=== PATIENT | male | born 1970 | race Two or more races ===

== ENCOUNTER → 2024-05-09 | Outpatient (CLI) | payer OTHER, SELFPAY ==
--- NOTE | 2024-05-09 | XR_ITS ---
Examination: PA lateral chest 2 views TECHNIQUE: Upright PA lateral chest 2 views Exam date and time: May 09, 2024 1312 hours Comparison September 03, 2023 INDICATIONS: Shortness of breath bronchitis one week FINDINGS: No significant cardiac enlargement No pneumonia or pulmonary edema Intact osseous structures IMPRESSION: No active disease
== END | disposition home or self-care (01) ==
PROVIDERS: PCP Family Medicine; Referring Provider Nurse Practitioner Family; Visit Provider Nurse Practitioner Family
DX: R06.02 Shortness of breath (principal)
CPT/HCPCS: 71046

== ENCOUNTER 2024-09-24 00:19 | Emergency (ER) | payer SELFPAY ==
[2024-09-24 00:21] VITALS: BMI 33.6
--- NOTE | 2024-09-24 00:47 | PC.NURSE ---
PT INFORMED ME THAT HE WILL GO HOME AND CALL AMBULANCE.
== END 2024-09-24 00:47 | disposition left against medical advice (07) ==
PROVIDERS: Emergency Provider Emergency Medicine
DX: Z53.21 Procedure and treatment not carried out due to patient leaving prior to being seen by health care provider (principal)

== ENCOUNTER 2025-01-15 17:11 | Inpatient (IN) | payer BC, SELFPAY ==
[2025-01-15 18:04] VITALS: BP 147/96; PULSE 90; RESP 20; TEMP 36.6; O2SAT 97; BMI 32.6
--- NOTE | 2025-01-15 19:05 | EKG_ITS ---
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
--- NOTE | 2025-01-15 19:08 | XR_ITS ---
EXAMINATION: PA lateral chest 2 views TECHNIQUE: Upright PA lateral chest 2 views Date and time: January 15, 2025, 1920 hours INDICATIONS: Shortness of breath today. FINDINGS: Suspicious for early pneumonia in the right lower lung zone Normal heart size No pulmonary edema The osseous structures are intact IMPRESSION: Suspicious for pneumonia in the right lower lung zone
--- NOTE | 2025-01-15 19:08 | PD.EDRME ---
Rapid Medical Screening Exam E Arrival date/time: 01/15/25 17:11 54-year-old male with a history of alcohol abuse reports with complaints of left upper quadrant abdominal pain and shortness of breath x 2 days Chief Complaint: Shortness of Breath/Dyspnea Time Seen by Provider: 01/15/25 19:01 Vital signs: Vital Signs Temperature 97.8 F 01/15/25 18:04 Pulse Rate 90 01/15/25 18:04 Respiratory Rate 20 01/15/25 18:04 Blood Pressure 147/96 H 01/15/25 18:04 Pulse Oximetry (%) 97 01/15/25 18:04 Oxygen Delivery Method Room Air 01/15/25 18:04
[2025-01-15 19:45] LABS: Basophils # (Auto) 0.0 Thou/mm3 (0.0-0.2); Basophils % (Auto) 0 % (0-2.5); Eosinophils # (Auto) 0.1 Thou/mm3 (0.0-0.5); Eosinophils % (Auto) 1 % (0-10); Hematocrit 48.9 % (41.0-53.0); Hemoglobin 17.3 g/dL (13.5-16.0); Immature Granulocytes Auto 0.12 Thou/mm3 (0.00-0.00); Lymphocytes # (Auto) 1.0 Thou/mm3 (1.0-4.8); Lymphocytes % (Auto) 6 % (10-50); Mean Corpuscular HGB Conc 35.4 g/dl (31.0-37.0); Mean Corpuscular Hemoglobin 33.5 pg (25.0-35.0); Mean Corpuscular Volume 95 fL (80-100); Monocytes # (Auto) 0.7 Thou/mm3 (0.0-0.8); Monocytes % (Auto) 4 % (0-12); Neutrophils # (Auto) 15.2 Thou/mm3 (1.8-7.7); Neutrophils % (Auto) 89 % (37-80); Nucleated Red Blood Cell # 0.00 Thou/mm3 (0.00-0.00); Nucleated Red Blood Cell % 0 /100 WBC (0); Platelet Count 231 Thou/mm3 (140-440); RDW Standard Deviation 43.1 fL (35.1-43.9); Red Blood Count 5.17 Miln/mm3 (4.50-5.90); White Blood Count 17.1 Thou/mm3 (3.8-10.6)
[2025-01-15 20:01] LABS: Collection Type, Urine Clean Catch; Squamous Epithelial Cell,Urine 0 /hpf (0-5); WBC,Urine 0 /hpf (0-5)
[2025-01-15 20:02] LABS: Alanine Aminotransferase 159 U/L (10-49); Albumin, Serum 4.2 gm/dL (3.5-5.0); Albumin/Globulin Ratio 1.2 (1.2-2.2); Alcohol, Blood Medical 74.6 mg/dL (0-10.0); Alkaline Phosphatase 151 U/L (46-116); Anion Gap 26 (7-16); Aspartate Amino Transferase 431 U/L (0-34); BUN/Creatinine Ratio 8 Ratio (12-20); Bilirubin,Total 1.0 mg/dL (0.3-1.2); Blood Urea Nitrogen 9 mg/dL (9-23); Calcium 8.9 mg/dL (8.3-10.6); Calcium (Corrected) 8.9 mg/dL (8.5-10.1); Chloride 101 mMol/L (98-107); Creatinine (Component) 1.2 mg/dL (0.6-1.3); Estimated Creatinine Clearance 81.5 mL/min (>60); Globulin 3.4 gm/dL (2.3-3.5); Glucose 106 mg/dL (74-106); Lipase 117 U/L (12-53); Magnesium 1.4 mg/dL (1.6-2.6); Osmolality,Calculated 276 (275-295); Potassium 3.7 mMol/L (3.4-5.1); Sodium 139 mMol/L (136-145); Total Protein 7.6 gm/dL (5.7-8.2); Troponin I < 0.020 ng/mL (0.0-0.045); eGFR > 60 See Note
[2025-01-15 20:04] LABS: Carbon Dioxide 11.8 mMol/L (20.0-31.0)
--- NOTE | 2025-01-15 20:22 | XR_ITS ---
Examination: Abdomen sonogram, Limited Date and time of exam: January 15, 2025, 2042 hours INDICATIONS: Epigastric pain nausea vomiting beginning today Technique: Real-time sheldon scale transabdominal sonographic images of the upper abdomen obtained. Findings: Normal gallbladder Normal common bile duct 0.3 cm Pancreatic head 3.1 cm Liver 18.7 cm fatty infiltration no focal liver lesions Normal hepatopetal portal. Patent IVC IMPRESSION: Normal gallbladder Normal common bile duct Moderate hepatomegaly fatty infiltration
--- NOTE | 2025-01-15 20:22 | XR_ITS ---
Examination: CT abdomen and pelvis without contrast. Coronal 3-D reconstructions. Sagittal 2-D reconstructions. Date and time of exam: January 15, 2025, 2037 hours INDICATIONS: Nausea generalized abdominal pain today CTDI: vol (mGy): 10.6 DLP: (mGycm): 656 Technique: Axial images of the abdomen have been obtained, 3 mm slice thickness Intravenous contrast material has not been administered. Low dose protocols were performed. One or more of the following dose reduction techniques were used; automated exposure control, adjustment of the mA and/or KV according to patient size, use of iterative reconstruction technique. Findings: Hepatomegaly, 20 cm with severe diffuse fatty infiltration throughout the liver No definite gallstones Edema around the head of the pancreas and body and tail of the pancreas Spleen is not enlarged No adrenal mass No renal or ureteral calculi, no hydronephrosis Aorta normal size No pericecal inflammatory change No bowel obstruction Colonic diverticulosis, no diverticulitis 19 mm fat-containing medical hernia Colonic diverticulosis Urinary bladder intact IMPRESSION: Significant hepatomegaly with severe diffuse fatty infiltration throughout the liver Acute pancreatitis, no pseudocyst
--- NOTE | 2025-01-15 20:24 | PD.EDABDPN ---
ED Abdominal Pain RME/HPI General Chief Complaint: Abdominal Pain Stated complaint: SOB, PAIN W/BREATHING Time seen by provider: 01/15/25 19:01 Arrival date/time: 01/15/25 17:11 RME / HPI RME / HPI narrative: 01/15/25 17:11 54-year-old male with a history of alcohol abuse reports with complaints of left upper quadrant abdominal pain and shortness of breath x 2 days See [facility] for Dr. Carrington's HPI Documentation. Related Data Home Medications ?Medication ?Instructions ?Recorded ?Confirmed No Known Home Medications 07/07/20 07/07/20 Allergies Allergy/AdvReac Type Severity Reaction Status Date / Time morphine Allergy rash Verified 01/15/25 17:14 Review of Systems Review of Systems Systems Reviewed: All systems reviewed, normal except as documented Past Medical History Past Medical History MUSCULOSKELETAL: Positive Musculoskeletal Disorders (trigger finger left thumb), Degenerative Disk Disease and Carpal Tunnel Syndrome (right) Surgical History SURGICAL: Positive Abdominal Surgery (umbilical hernia repair) ED Exam Narrative Physical exam: See [facility] for Dr. Carrington's Physical Exam Documentation. Course Quality Measures none Orders Category Date Time Status COVID-19 Screening Questionnaire NOW Care 01/15/25 23:18 Completed Decision to Admit X1 Care 01/15/25 23:18 Completed EKG (ED ONLY) *Do not use* NOW Care 01/15/25 19:07 Completed NPO NOW Care 01/15/25 22:10 Active Saline [Insert IV] NOW Care 01/15/25 22:12 Active Diet NPO (NOW) Diet 01/15/25 22:[address] abdomen pelvis wo con Stat Exams 01/15/25 20:22 Completed CXR2 [XR chest 2V] Stat Exams 01/15/25 19:08 Completed EKG (ED Only) Stat Exams 01/15/25 19:05 Draft US abdomen limited Stat Exams 01/15/25 20:22 Completed ABG [Arterial Blood Gas] Stat Lab 01/16/25 01:48 Completed Alcohol, Blood Medical Stat Lab 01/15/25 19:36 Completed Amylase Stat Lab 01/15/25 19:36 Completed BNP [B-Type Natriuretic Peptide] Stat Lab 01/15/25 19:36 Completed Beta Hydroxybutyrate Stat Lab 01/15/25 21:23 Completed Bilirubin,Direct Stat Lab 01/15/25 19:36 Completed CBC Stat Lab 01/15/25 19:36 Completed CMP [Comprehensive Metabolic Panel] Stat Lab 01/15/25 19:36 Completed Drug Screen,Urine Stat Lab 01/15/25 19:46 Completed Lactic Acid [Lactate (Lactic Acid)] Stat Lab 01/15/25 23:13 Results Lipase Stat Lab 01/15/25 19:36 Completed Mag [Magnesium] Stat Lab 01/15/25 19:36 Completed PT [Prothrombin Time with INR] Stat Lab 01/15/25 19:36 Completed PTT [Partial Thromboplastin Time] Stat Lab 01/15/25 19:36 Completed Thyroid Stimulating Hormone Stat Lab 01/15/25 19:36 Completed Triglycerides Stat Lab 01/15/25 23:13 Completed Troponin I Stat Lab 01/15/25 19:36 Completed UA [Urinalysis] Stat Lab 01/15/25 19:46 Completed ACETAMINOPHEN w/COD 300-30 [Tylenol w/Cod #3] Med 01/15/25 20:21 Discontinued 2 tab PO X1 ONE Famotidine [Pepcid] Med 01/15/25 20:21 Discontinued 40 mg PO X1 ONE HYDROmorphone INJ [Dilaudid Inj] Med 01/15/25 22:13 Discontinued 1 mg IVP X1 ONE Ketorolac Inj [Toradol Inj] Med 01/15/25 22:12 Discontinued 30 mg IVP X1 ONE LORazepam [Ativan Inj] Med 01/16/25 00:02 Discontinued 2 mg IVP X1 ONE Labetalol IV [Trandate IV] Med 01/16/25 00:12 Discontinued 20 mg IVP X1 ONE Magnesium Oxide [Mag-Ox 400] Med 01/15/25 20:21 Discontinued 800 mg PO X1 ONE Magnesium Sulfate 2 GM Ivpb [Magnesium Sulfate Ivpb] Med 01/15/25 22:24 Discontinued 2 gm in 50 ml IV X1 Metoprolol Tartrate Inj [Lopressor Inj] Med 01/16/25 00:02 Discontinued 5 mg IVP X1 ONE Ondansetron Inj [Zofran Inj] Med 01/15/25 22:12 Discontinued 4 mg IVP X1 ONE Ondansetron Odt [Zofran Odt] Med 01/15/25 20:21 Discontinued 4 mg PO X1 ONE Pantoprazole Inj [Protonix Inj] Med 01/15/25 20:21 Discontinued 40 mg IVP X1 ONE Ringers Lactated 1000 ml [Lactated Ringers] 1,000 ml Med 01/15/25 22:12 Discontinued IV 1,000 mls/hr Vital Signs Vital signs: Vital Signs Temperature 97.8 F 01/15/25 18:04 Pulse Rate 90 01/15/25 18:04 Respiratory Rate 20 01/15/25 18:04 Blood Pressure 147/96 H 01/15/25 18:04 Pulse Oximetry (%) 97 01/15/25 18:04 Oxygen Delivery Method Room Air 01/15/25 18:04 Abdominal Pain MDM MDM Narrative MDM Narrative:: This section includes all my notes and documentations, including HPI, PE, and ED course. Alejandro Carrington MD HPI: 54-year-old male here with several days of abdominal pain and vomiting. Consumes alcohol heavily regularly. No hematemesis or coffee-ground emesis. No rectal bleeding or tarry stools. No other complaints. ROS: All negative except as documented in HPI. Physical Exam: General: Alert and oriented. In severe pain. Eyes: Conjunctivae and lids clear. ENT: No nasal congestion. Neck: Supple. Heart: RRR. Lungs: No respiratory distress. Good air movement. No rhonchi, wheezing, rales. Abdomen: Soft with severe pain, difficult to localize. Normal bowel sounds. No distension. No rebound or guarding. Back: No CVA tenderness. Skin: Warm and dry. Neuro: Alert and oriented X 3. I reviewed all diagnostic test results. My interpretation of the EKG is sinus rhythm with no acute ST?T changes. My interpretation of the chest x-ray is equivocal infiltrates. My review of the Abdomen/Pelvis CT report is pancreatitis. My review of the Abdomen US report is no acute findings. Blood tests and urine tests remarkable for WBC 17.1, lactic acid 5.1, Mg 1.4, LFT elevation, serum alcohol 74.6. At this point, diagnoses include Hypomagnesemia Pancreatitis Treatment here included: Zofran ODT 4 mg, oral famotidine 20 mg, and two Tylenol #3 prior to diagnostic tests. IVF, Zofran 4 mg IV, Dilaudid 1 mg IV, Toradol 30 mg IV, and MgSO4 2 gram IV after diagnostic tests. Some improvement noted. 22:16 - I discussed the case with our hospitalist. About the presentation and exam and diagnostics and treatments here. And need of further care in the hospital. Will accept the patient. Alejandro Carrington MD Patient data External records reviewed:: [facility] previous records (Reviewed prior ED records from 09/03/23. Patient was seen for Acute shoulder pain.) Clinical information provided by:: patient Social determinants that could affect healthcare access:: alcohol use Patient has the following chronic illnesses:: Degenerative Disk Disease, Carpal Tunnel Syndrome How is presenting disease/condition affected by chronic disease/condition?: uneffected by Evaluation data The following diagnostics were reviewed and interpreted by me:: lab results, radiology exam(s) and EKG tracing(s) Lab and/or radiology exams considered but not ordered:: None Interpretation Summary: I reviewed all diagnostic test results. My interpretation of the EKG is sinus rhythm with no acute ST?T changes. My interpretation of the chest x-ray is equivocal infiltrates. My review of the Abdomen/Pelvis CT report is pancreatitis. My review of the Abdomen US report is no acute findings. Blood tests and urine tests remarkable for WBC 17.1, lactic acid 5.1, Mg 1.4, LFT elevation, serum alcohol 74.6. Medications / Prescriptions Medications or Prescriptions considered but not ordered:: None Medication administrations:: Medication Administration History Acetaminophen (Acetaminophen 325 Mg Tablet) 650 mg PO Q6H PRN PRN Reason: Fever >100.4 Stop: 02/15/25 00:15 Acetaminophen (Acetaminophen 325 Mg Tablet) 650 mg PO Q6H PRN PRN Reason: PAIN SCALE 1-3 (mild Stop: 02/15/25 00:15 Folic Acid (Folic Acid 1 Mg Tablet) 1 mg PO QDAY DARYL Stop: 02/15/25 08:59 Heparin Sodium (Porcine) (Heparin Sod Inj 5000 Unit/Ml Vial) 5,000 unit SC BID DARYL Stop: 01/30/25 08:59 Hydromorphone HCl (Hydromorphone Inj 2 Mg/Ml Vial) 1 mg IVP Q4H PRN PRN Reason: PAIN SCALE 4-10(Mod-Sev Stop: 01/21/25 00:20 Lactated Ringer's (Lactated Ringers) 1,000 mls @ 200 mls/hr IV .Q5H DARYL Stop: 02/15/25 01:05 Labetalol HCl (Labetalol Inj 5 Mg/Ml Vial 20 Ml) 10 mg IVP Q4HR PRN PRN Reason: SBP>180 Stop: 02/15/25 02:13 Lorazepam (Lorazepam 0.5 Mg Tablet) 0.5 mg PO Q4HR PRN PRN Reason: [facility] 2-6 Stop: 01/21/25 01:55 Lorazepam (Lorazepam 0.5 Mg Tablet) 1 mg PO Q4HR PRN PRN Reason: [facility] 7-11 Stop: 01/21/25 01:55 Lorazepam (Lorazepam 0.5 Mg Tablet) 2 mg PO Q4HR PRN PRN Reason: [facility] 12-16 Stop: 01/21/25 01:55 Ondansetron HCl (Ondansetron Inj 2 Mg/Ml Inj 2 Ml) 4 mg IVP Q6H PRN; Protocol PRN Reason: NAUSEA OR VOMITING Stop: 02/15/25 00:15 Sennosides (Senna Tablet) 1 tab PO QDAY PRN; Protocol PRN Reason: constipation Stop: 02/15/25 00:15 Thiamine HCl (Thiamine 100 Mg Tablet) 100 mg PO QDAY DARYL Stop: 02/15/25 08:59 Discontinued Medications Acetaminophen/Codeine Phosphate (Acetaminophen W/Cod 300-30 Tablet) 2 tab PO X1 ONE Stop: 01/15/25 20:22 Last Admin: 01/15/25 21:55 Dose: 2 tab Documented By: GB Famotidine (Famotidine 20 Mg Tablet) 40 mg PO X1 ONE Stop: 01/15/25 20:22 Last Admin: 01/15/25 21:53 Dose: 40 mg Documented By: GB Hydromorphone HCl (Hydromorphone Inj 2 Mg/Ml Vial) 1 mg IVP X1 ONE Stop: 01/15/25 22:14 Last Admin: 01/15/25 23:06 Dose: 1 mg Documented By: SF Lactated Ringer's (Lactated Ringers) 1,000 mls @ 1,000 mls/hr IV .Q1H ONE Stop: 01/15/25 23:11 Last Infusion: 01/16/25 00:51 Dose: Infused Documented By: Admin: 01/15/25 23:05 Dose: 1,000 mls/hr Documented By: ETIENNE Magnesium Sulfate (Magnesium Sulfate Ivpb) 2 gm in 50 mls @ 25 mls/hr IV X1 ONE Stop: 01/16/25 00:23 Last Infusion: 01/16/25 01:07 Dose: Infused Documented By: Admin: 01/15/25 23:07 Dose: 25 mls/hr Documented By: ETIENNE Lactated Ringer's (Lactated Ringers) 1,000 mls @ 150 mls/hr IV .Q6H40M DARYL Stop: 02/15/25 00:32 Last Infusion: 01/16/25 01:49 Dose: Infused Documented By: Admin: 01/16/25 00:54 Dose: 150 mls/hr Documented By: ARACELI Ketorolac Tromethamine (Ketorolac Inj 30 Mg/Ml Vial) 30 mg IVP X1 ONE Stop: 01/15/25 22:13 Last Admin: 01/15/25 23:03 Dose: 30 mg Documented By: ETIENNE Labetalol HCl (Labetalol Inj 5 Mg/Ml Vial 20 Ml) 20 mg IVP X1 ONE Stop: 01/16/25 00:13 Last Admin: 01/16/25 00:35 Dose: 20 mg Documented By: ARACELI Labetalol HCl (Labetalol Inj 5 Mg/Ml Vial 20 Ml) 10 mg IVP X1 ONE Stop: 01/16/25 01:57 Last Admin: 01/16/25 02:07 Dose: 10 mg Documented By: ARACELI Lorazepam (Lorazepam 2 Mg/Ml Vial) 2 mg IVP X1 ONE Stop: 01/16/25 00:03 Last Admin: 01/16/25 00:36 Dose: 2 mg Documented By: EE Magnesium Oxide (Magnesium Oxide 400 Mg Tablet) 800 mg PO X1 ONE Stop: 01/15/25 20:22 Last Admin: 01/15/25 21:54 Dose: 800 mg Documented By: ISAIAH Metoprolol Tartrate (Metoprolol Tartrate Inj 1 Mg/Ml Amp 5 Ml) 5 mg IVP X1 ONE Stop: 01/16/25 00:03 Last Admin: 01/16/25 00:36 Dose: Not Given Documented By: ARACELI Non-Admin Reason: Duplicate Medication on eMAR Ondansetron HCl (Ondansetron Odt 4 Mg Tabrap) 4 mg PO X1 ONE; Protocol Stop: 01/15/25 20:22 Last Admin: 01/15/25 21:53 Dose: 4 mg Documented By: ISAIAH Ondansetron HCl (Ondansetron Inj 2 Mg/Ml Inj 2 Ml) 4 mg IVP X1 ONE; Protocol Stop: 01/15/25 22:13 Last Admin: 01/15/25 23:05 Dose: 4 mg Documented By: SF Pantoprazole Sodium (Pantoprazole Inj 40 Mg Vial) 40 mg IVP X1 ONE Stop: 01/15/25 20:22 Last Admin: 01/15/25 23:05 Dose: 40 mg Documented By: ETIENNE Treatment here included: Zofran ODT 4 mg, oral famotidine 20 mg, and two Tylenol #3 prior to diagnostic tests. IVF, Zofran 4 mg IV, Dilaudid 1 mg IV, Toradol 30 mg IV, and MgSO4 2 gram IV after diagnostic tests. Consultations Consultation(s) initiated? (list below): Yes Consultation #1 (Physician, Specialty, Details): I discussed the case with our hospitalist. About the presentation and exam and diagnostics and treatments here. And need of further care in the hospital. Will accept the patient. Time: 22:16 Diagnosis Differential diagnosis abdominal pain: abdominal pain, acute appendicitis, calculus of kidney, constipation, diverticulitis, gastroenteritis, pancreatitis, small bowel obstruction and other (Biliary colic, GERD, PUD, gastritis) Most likely diagnosis given after review of the tests above:: Pancreatitis Hypomagnesemia Admission Indicated Admission indicated?: indicated Explain why admission is indicated or not indicated:: Pancreatitis Hypomagnesemia Admission Request Was there a request for admission?: Yes Admission Attestation Admission request attestation: Discussed case with Hospitalist service regarding admission. Discussed patients ED course, exam findings, labs, and radiology results. Agreed to accept the patient for admission. Disposition Plan Disposition Plan: Admit Discharge Plan Plan Patient Disposition: Admit Acute Care w/in Hospital Problem List Clinical Impression: Pancreatitis, Hypomagnesemia
[2025-01-15 20:34] LABS: Amphetamine/Methamp Scrn,U Negative (Negative); Barbiturate Screen,Urine Negative (Negative); Benzodiazepines Screen,Urine Positive (Negative); Benzoylecgonine Screen, Ur Negative (Negative); Fentanyl Screen,Urine Negative (Negative); Opiate Screen,Urine Negative (Negative); THC Screen,Urine Negative (Negative)
[2025-01-15 20:44] LABS: Bilirubin,Urine Negative (Negative); Blood,Urine Trace (Negative); Clarity,Urine Clear (Clear/Hazy); Color,Urine Yellow (Lt Yel-Yel); Glucose, Urine Negative (Negative); Ketones,Urine 2+ (Negative); Leukocyte Esterase,Urine Negative (Negative); Nitrite,Urine Negative (Negative); PH,Urine 5.5 (5.0-7.0); Protein,Urine 1+ (Neg - Trace); RBC,Urine 2 /hpf (0-3); Specific Gravity,Urine 1.034 (1.001-1.035); Urobilinogen,Urine Negative mg/dL (0.0-1.0)
[2025-01-15 20:51] LABS: INR 1.2 (0.9-1.3); Partial Thromboplastin Time 29.9 Seconds (22.0-36.0); Prothrombin Time 12.3 Seconds (9.0-12.2)
[2025-01-15 20:57] LABS: B-Type Natriuretic Peptide < 20 pg/mL (0-100)
[2025-01-15 21:04] LABS: Amylase 75 U/L (30-118); Bilirubin,Direct 0.3 mg/dL (0.0-0.3); Thyroid Stimulating Hormone 1.64 uIU/mL (0.55-4.78)
[2025-01-15 21:41] LABS: Beta Hydroxybutyrate 0.4 mmol/L (<0.6)
[2025-01-15] MEDS: FAMOTIDINE 20 MG TABLET 40 MG PO (21:53)
[2025-01-15] MEDS: ONDANSETRON ODT 4 MG TABRAP PO (21:53)
[2025-01-15] MEDS: MAGNESIUM OXIDE 400 MG TABLET 800 MG PO (21:54)
[2025-01-15] MEDS: ACETAMINOPHEN w/COD 300-30 TABLET 2 TAB PO (21:55)
[2025-01-15] MEDS: KETOROLAC INJ 30 MG/ML VIAL IVP (23:03)
[2025-01-15] MEDS: RINGERS LACTATED 1000 ML 1,000 ML IV (23:05)
[2025-01-15] MEDS: ONDANSETRON INJ 2 MG/ML INJ 2 ML 4 MG IVP (23:05)
[2025-01-15] MEDS: HYDROmorphone INJ 2 MG/ML VIAL 1 MG IVP (23:06)
[2025-01-15] MEDS: Magnesium Sulfate 2 GM Ivpb 2 GM/50 ML BAG IV (23:07)
[2025-01-15 23:36] VITALS: BP 190/119; PULSE 119; RESP 19; TEMP 36.6; O2SAT 99
[2025-01-16] VITALS (30 sets, daily range): BP systolic 127–215; BP diastolic 102–137; PULSE 91–134; RESP 13–29; TEMP 36.3–37.2; O2SAT 93–100
--- NOTE | 2025-01-16 00:29 | PD.RESHP ---
Documentation for date of: 01/16/25 [facility] History of Present Illness Chief complaint: abdominal pain History of present illness: This is a 54-year-old male with past medical history of hypertension, anxiety, chronic alcohol use presented to the ED with complaints of abdominal pain since 01/14 afternoon. He has been complaining of sharp abdominal pain over the epigastrium and left upper quadrant regions 10 out of 10 on pain scale associated with nausea. He endorses diaphoresis, dizziness ,chills and couple of episodes of vomiting around 8 PM 01/15. He denies any shortness of breath, chest pain, chest tightness, fever, diarrhea, urinary frequency, urgency, loss of consciousness or any trauma to the abdomen. No similar complaints in the past He drinks alcohol 1 bottle for every 3 days. Today ED visit initial vitals?BP 147/96, pulse rate 98, respiratory rate 20, temperature 97.8 F, saturating in 7% on room air. Pertinent lab findings are hemoglobin 7.3, hematocrit 48.9, WBC 17.9 with neutrophil 89%. Bicarbonate 11.8, anion gap 26, magnesium 1.4, AST 431, ALT 159, ALP 151, lipase 117. Urine drug screen came out to be positive for benzos and alcohol. Urinary analysis shows protein 1+, ketones 2+, Lactic acid-5.[address] abdomen showing acute pancreatitis and diffuse fatty infiltration in the liver with hepatomegaly. Abdominal ultrasound showing normal gallbladder and normal common bile duct Treatment given in ED lorazepam 2 mg, famotidine, hydromorphone, ondansetron, 1 L of lactated Ringer, 2 g of magnesium sulfate for low magnesium levels. Past medical history: History of hypertension with a to take lisinopril but not taking anymore for a long time, prior to herbal supplement bethroot for hypertension stopped 1 month ago. Occasionally uses Xanax for his anxiety. Past surgical history: History of umbilical hernia repair 15 years back. Carpal tunnel syndrome repair. Social history: Drinks whiskey 1 bottle every 3 days but denies any smoking or any other drugs. Family history: History of diabetes, alcohol abuse in the family. Allergic history: Allergic to morphine?rash. Review of Systems Review of Systems Systems Reviewed: All systems reviewed, normal except as documented Exam Vital Signs Temp Pulse Resp BP Pulse Ox O2 Del Method 98 F 119 H 19 190/119 H 99 Room Air 01/15/25 23:36 01/15/25 23:36 01/15/25 23:36 01/15/25 23:36 01/15/25 23:36 01/15/25 23:36 Narrative Exam GENERAL: NAD, AAOx3 HEENT: Moist mucosa. Eyes open, symmetrical, & clear CARDIO: Rapid regular rhythm Noted. No Murmurs. PULM: No noted coughing/dyspnea CTA B/L, no R/W/R GI: Abdomen soft, nondistended, non Tender when I examined SKIN/MSK/EXT: No wounds/rashes/amputations, no pain on palpation. Pedal pulses present B/L. Bruise over the Left eye NEURO: AAOx3, no focal neuro deficits, able to move all 4 extremities Results: Labs 01/16/25 05:03 01/16/25 05:03 Labs: Short CBC 01/15/25 Range/Units 19:36 WBC 17.1 H (3.8-10.6) Thou/mm3 Hgb 17.3 H (13.5-16.0) g/dL Hct 48.9 (41.0-53.0) % Plt Count 231 (140-440) Thou/mm3 BMP 01/15/25 19:36 Sodium 139 Potassium 3.7 Chloride 101 Carbon Dioxide 11.8 L* BUN 9 Creatinine 1.2 Glucose 106 Calcium 8.9 Cardiac Enzymes 01/15/25 Range/Units 19:36 Troponin I < 0.020 (0.0-0.045) ng/mL Liver Function 01/15/25 Range/Units 19:36 Total Bilirubin 1.0 (0.3-1.2) mg/dL Direct Bilirubin 0.3 (0.0-0.3) mg/dL AST 431 H (0-34) U/L ALT 159 H (10-49) U/L Alkaline Phosphatase 151 H (46-116) U/L Albumin 4.2 (3.5-5.0) gm/dL Urine 01/15/25 Range/Units 19:46 Urine Color Yellow (Lt Yel-Yel) Urine Clarity Clear (Clear/Hazy) Urine pH 5.5 (5.0-7.0) Ur Specific [place] 1.034 (1.001-1.035) Urine Protein 1+ A (Neg - Trace) Urine Glucose (UA) Negative (Negative) Quality Measures Quality Measures none Medications Home Medications and Allergies Home Medications ?Medication ?Instructions ?Recorded ?Confirmed ?Type No Known Home Medications 07/07/20 07/07/20 History Allergies Allergy/AdvReac Type Severity Reaction Status Date / Time morphine Allergy rash Verified 01/15/25 17:14 Visit Medications Acetaminophen (Acetaminophen 325 Mg Tablet) 650 mg PO Q6H PRN PRN Reason: Fever >100.4 Stop: 02/15/25 00:15 Acetaminophen (Acetaminophen 325 Mg Tablet) 650 mg PO Q6H PRN PRN Reason: PAIN SCALE 1-3 (mild Stop: 02/15/25 00:15 Heparin Sodium (Porcine) (Heparin Sod Inj 5000 Unit/Ml Vial) 5,000 unit SC BID DARYL Stop: 01/30/25 08:59 Hydromorphone HCl (Hydromorphone Inj 2 Mg/Ml Vial) 1 mg IVP Q4H PRN PRN Reason: PAIN SCALE 4-10(Mod-Sev Stop: 01/21/25 00:20 Ondansetron HCl (Ondansetron Inj 2 Mg/Ml Inj 2 Ml) 4 mg IVP Q6H PRN; Protocol PRN Reason: NAUSEA OR VOMITING Stop: 02/15/25 00:15 Sennosides (Senna Tablet) 1 tab PO QDAY PRN; Protocol PRN Reason: constipation Stop: 02/15/25 00:15 Discontinued Medications Acetaminophen/Codeine Phosphate (Acetaminophen W/Cod 300-30 Tablet) 2 tab PO X1 ONE Stop: 01/15/25 20:22 Last Admin: 01/15/25 21:55 Dose: 2 tab Famotidine (Famotidine 20 Mg Tablet) 40 mg PO X1 ONE Stop: 01/15/25 20:22 Last Admin: 01/15/25 21:53 Dose: 40 mg Hydromorphone HCl (Hydromorphone Inj 2 Mg/Ml Vial) 1 mg IVP X1 ONE Stop: 01/15/25 22:14 Last Admin: 01/15/25 23:06 Dose: 1 mg Lactated Ringer's (Lactated Ringers) 1,000 mls @ 1,000 mls/hr IV .Q1H ONE Stop: 01/15/25 23:11 Last Admin: 01/15/25 23:05 Dose: 1,000 mls/hr Magnesium Sulfate (Magnesium Sulfate Ivpb) 2 gm in 50 mls @ 25 mls/hr IV X1 ONE Stop: 01/16/25 00:23 Last Admin: 01/15/25 23:07 Dose: 25 mls/hr Ketorolac Tromethamine (Ketorolac Inj 30 Mg/Ml Vial) 30 mg IVP X1 ONE Stop: 01/15/25 22:13 Last Admin: 01/15/25 23:03 Dose: 30 mg Labetalol HCl (Labetalol Inj 5 Mg/Ml Vial 20 Ml) 20 mg IVP X1 ONE Stop: 01/16/25 00:13 Lorazepam (Lorazepam 2 Mg/Ml Vial) 2 mg IVP X1 ONE Stop: 01/16/25 00:03 Magnesium Oxide (Magnesium Oxide 400 Mg Tablet) 800 mg PO X1 ONE Stop: 01/15/25 20:22 Last Admin: 01/15/25 21:54 Dose: 800 mg Metoprolol Tartrate (Metoprolol Tartrate Inj 1 Mg/Ml Amp 5 Ml) 5 mg IVP X1 ONE Stop: 01/16/25 00:03 Ondansetron HCl (Ondansetron Odt 4 Mg Tabrap) 4 mg PO X1 ONE; Protocol Stop: 01/15/25 20:22 Last Admin: 01/15/25 21:53 Dose: 4 mg Ondansetron HCl (Ondansetron Inj 2 Mg/Ml Inj 2 Ml) 4 mg IVP X1 ONE; Protocol Stop: 01/15/25 22:13 Last Admin: 01/15/25 23:05 Dose: 4 mg Pantoprazole Sodium (Pantoprazole Inj 40 Mg Vial) 40 mg IVP X1 ONE Stop: 01/15/25 20:22 Last Admin: 01/15/25 23:05 Dose: 40 mg Assessment & Plan Plan This is a 54-year-old male with past medical history of hypertension, anxiety, chronic alcohol use presented to the ED with complaints of severe epigastric and LUQ abdominal pain since 01/14 afternoon. He was admitted for acute pancreatitis. # Acute pancreatitis Severe epigastric and left upper quadrant abdominal pain since 1 day associated with nausea vomiting and chills. History of alcohol usage. Hemoglobin 17.3, WBC 17.1, neutrophilia 89%, HCO3 11.8 , anion gap 26. Lactic acid 5.1-->3.8, lipase 117 CT abdomen showing acute pancreatitis and diffuse fatty infiltration in the liver with hepatomegaly. ?Starting on IV fluids 200 cc/h. ?Trend lactic acid levels. ?Hydromorphone 1 g every 4 hours for his pain # Hypertensive Urgency Noncompliant with his home hypertension medication Initial blood pressure is 141/96 went to 192/120. Denies any symptoms of headache, blurriness of vision. Given labetalol 30 mg, losartan 50 mg. - Continue to monitor his blood pressure # Transamnitis AST 431, ALT 159, ALP 151 Most probably due to his history of heavy alcohol usage. ?Continue to monitor avoid any hepatotoxic drugs # Alcohol use disorder. ?Starting on CIWA protocol Code status: Full DVT prophylaxis: Heparin GI prophylaxis: Zofran Diet: Clear liquid diet [place]: None Lines: PIV Supplemental O2: none Disposition: Tele I discussed this case with my senior Dr. Joshi and my attending Dr. Jeremias Arreaga MD PGY1 Attending Provider Attestation/Addendum 54-year-old male patient was seen and examined in ED 9. The patient complains of abdominal pain, CT scan showed acute pancreatitis. Ultrasound showed normal gallbladder. Patient also came in with very high blood pressure reading. He denies chest pain. He is not short of breath. He has no leg edema. I discussed with and supervised the resident physician who took care of this patient. I agree with the assessment and plan as above.
[2025-01-16] MEDS: LABETALOL INJ 5 MG/ML VIAL 20 ML 20 MG IVP (00:35)
[2025-01-16] MEDS: LORazepam 2 MG/ML VIAL IVP (00:36)
[2025-01-16 00:39] LABS: Lactate (Lactic Acid) 5.1 mMol/L (0.4-2.0)
[2025-01-16] MEDS: RINGERS LACTATED 1000 ML 1,000 ML 150 ML IV (00:54)
[2025-01-16 01:12] LABS: Triglycerides 693 mg/dL (30-150)
[2025-01-16 01:53] LABS: Base Excess 0 (-3-3); HCO3 25 mEq/L (20-26); Inspired Oxygen, FIO2 21 %; O2 Saturation 94 % (91-98); PCO2 38 mmHg (32.0-48.0); PO2 69 mmHg (83-108); pH, Arterial 7.42 (7.35-7.45)
--- NOTE | 2025-01-16 01:53 | PC.RT ---
RT not aware of abg order, done at 0148 nurse made aware.
[2025-01-16 01:55] LABS: Allen Test Performed/OK; Puncture Site Right Radial
[2025-01-16] MEDS: LABETALOL INJ 5 MG/ML VIAL 20 ML 10 MG IVP ×3 (02:07→21:07)
[2025-01-16] MEDS: LOSARTAN POTASSIUM 25 MG TABLET 50 MG PO ×2 (03:31→08:18)
[2025-01-16] MEDS: RINGERS LACTATED 1000 ML 1,000 ML 200 ML IV ×4 (03:31→20:23)
[2025-01-16 03:33] LABS: Reflex Lactate? Y
[2025-01-16] MEDS: HYDROmorphone INJ 2 MG/ML VIAL 1 MG IVP ×3 (03:35→14:52)
[2025-01-16 05:32] LABS: Lactate (Lactic Acid) 3.8 mMol/L (0.4-2.0)
[2025-01-16 05:35] LABS: Basophils # (Auto) 0.0 Thou/mm3 (0.0-0.2); Basophils % (Auto) 0 % (0-2.5); Eosinophils # (Auto) 0.0 Thou/mm3 (0.0-0.5); Eosinophils % (Auto) 0 % (0-10); Hematocrit 43.2 % (41.0-53.0); Hemoglobin 15.1 g/dL (13.5-16.0); Immature Granulocytes Auto 0.11 Thou/mm3 (0.00-0.00); Lymphocytes # (Auto) 1.3 Thou/mm3 (1.0-4.8); Lymphocytes % (Auto) 8 % (10-50); Mean Corpuscular HGB Conc 35.0 g/dl (31.0-37.0); Mean Corpuscular Hemoglobin 33.1 pg (25.0-35.0); Mean Corpuscular Volume 95 fL (80-100); Monocytes # (Auto) 0.8 Thou/mm3 (0.0-0.8); Monocytes % (Auto) 5 % (0-12); Neutrophils # (Auto) 13.6 Thou/mm3 (1.8-7.7); Neutrophils % (Auto) 86 % (37-80); Nucleated Red Blood Cell # 0.00 Thou/mm3 (0.00-0.00); Nucleated Red Blood Cell % 0 /100 WBC (0); Platelet Count 138 Thou/mm3 (140-440); RDW Standard Deviation 43.7 fL (35.1-43.9); Red Blood Count 4.56 Miln/mm3 (4.50-5.90); White Blood Count 15.8 Thou/mm3 (3.8-10.6)
[2025-01-16 06:25] LABS: Alanine Aminotransferase 112 U/L (10-49); Albumin, Serum 3.5 gm/dL (3.5-5.0); Albumin/Globulin Ratio 1.3 (1.2-2.2); Alkaline Phosphatase 114 U/L (46-116); Anion Gap 14 (7-16); Aspartate Amino Transferase 243 U/L (0-34); BUN/Creatinine Ratio 11 Ratio (12-20); Bilirubin,Total 1.6 mg/dL (0.3-1.2); Blood Urea Nitrogen 12 mg/dL (9-23); Calcium 8.2 mg/dL (8.3-10.6); Calcium (Corrected) 8.6 mg/dL (8.5-10.1); Carbon Dioxide 23.2 mMol/L (20.0-31.0); Cardiac Risk Estimate 5.1 RATIO (4.0-6.7); Chloride 101 mMol/L (98-107); Cholesterol 108 mg/dL (132-200); Creatinine (Component) 1.1 mg/dL (0.6-1.3); Estimated Creatinine Clearance 88.9 mL/min (>60); Globulin 2.6 gm/dL (2.3-3.5); Glucose 138 mg/dL (74-106); HDL Cholesterol 21 mg/dL (40-60); LDL Cholesterol,Calculated 10 mg/dL (0-130); Magnesium 1.8 mg/dL (1.6-2.6); Osmolality,Calculated 277 (275-295); Potassium 3.9 mMol/L (3.4-5.1); Sodium 138 mMol/L (136-145); Thyroid Stimulating Hormone 2.15 uIU/mL (0.55-4.78); Total Protein 6.1 gm/dL (5.7-8.2); Triglycerides 387 mg/dL (30-150); eGFR > 60 See Note
--- NOTE | 2025-01-16 07:54 | PC.NURSE ---
PT GCS 15 UPON ASSUMPTION OF CARE, DENIES ANY PAIN AT THIS TIME, AMBULATED TO BR INDEPENDENTLY. BP ELEVATED AFTER AMBULATION, WILL REST AND RE-EVALUATE. WILL CONT W/POC
[2025-01-16] MEDS: THIAMINE 100 MG TABLET PO (08:18)
[2025-01-16] MEDS: FOLIC ACID 1 MG TABLET PO (08:18)
[2025-01-16] MEDS: HEPARIN SOD INJ 5000 UNIT/ML VIAL SC ×2 (08:21→20:11)
[2025-01-16 08:22] LABS: Reflex Lactate? Y
[2025-01-16 08:47] LABS: Lactic Acid, 3 HR 2.9 mMol/L (0.4-2.0)
[2025-01-16 13:01] LABS: Triglycerides 365 mg/dL (30-150)
--- NOTE | 2025-01-16 18:58 | ESPR_ITS ---
<Statement entered by Casa Viramontes MD - 01/16/25 18:59> I have reviewed the note and agree with the resident's assessment & plan with exceptions as below. I have personally reviewed labs, imaging, home meds/prior records, examined the patient, formulated and discussed management plan with my attending Patient was seen and examined at bedside this morning. No acute overnight events. Patient was admitted for pancreatitis and patient states he drinks about three fourths of a vodka bottle almost every day. States his last drink was the day prior to admission. He states that he started having epigastric pain and cannot tolerate therefore he came into the ED. Denies any nausea or vomiting at the current time. Patient's triglycerides were also on the higher end within the 300s, therefore could have contributed to patient's pancreatitis, but at this time pancreatitis most likely given alcohol use. Will continue with IV fluids for now and pain management. Patient still desired to eat therefore start patient on clear liquid diet and will advance as tolerated. Casa Viramontes PGY2 Disclaimer: Even though this this note was dictated by speech recognition and even though it was carefully revised there may still be minor errors in patient accounts coordinator due to voice recognition software. Documentation for date of: 01/16/25 Subjective Subjective Interval history: Patient was seen and examined at bedside today; no acute events overnight. He states that he drinks 1 bottle of of alcohol every 3 days. States that he has epigastric and LUQ pain currently; also had a bruise on the left eye. When asked he said that it was due to walking into something a few days ago Exam Vital Signs Temp Pulse Resp BP Pulse Ox O2 Del Method 98.9 F 133 H 18 190/117 H 95 Room Air 01/16/25 16:35 01/16/25 18:17 01/16/25 16:35 01/16/25 18:17 01/16/25 14:10 01/16/25 14:10 Narrative Exam General: A/O x3, no acute distress, well-nourished, well-developed Eyes: PERRL, EOMI. Anicteric, vision grossly intact. Left eye bruise. Ears: No ear pain, no ear discharge, Hearing grossly intact. Nose: No nasal discharge. Mouth/Throat: Moist mucous membranes, no redness, no lesions. Neck: Neck supple, non-tender, no cervical lymphadenopathy. Lungs: Clear RADHIKA to auscultation and percussion, No accessory muscle use. Cardio: Normal S1/S2, regular rhythm, no murmurs, no JVD or carotid bruits. Abdomen: Soft, epigastric pain and tenderness, no palpable masses, peristalsis present, no guarding or rebound. Extremities: Symmetrical, no significant deformities, no peripheral edema , non-tender, peripheral pulses presents. Skin: No rashes, no lesions, warm to touch. Neuro: No focal neurological deficits. Psych: Cooperative, appropriate mood and effect. Objective Labs 01/17/25 09:58 01/17/25 09:58 Labs: Laboratory Results - last 24 hr 01/15/25 01/15/25 01/15/25 19:36 19:46 21:23 WBC 17.1 H RBC 5.17 Hgb 17.3 H Hct 48.9 MCV 95 MCH 33.5 MCHC 35.4 RDW Std Deviation 43.1 Plt Count 231 Neut % (Auto) 89 H Lymph % (Auto) 6 L [place] % (Auto) 4 Eos % (Auto) 1 Baso % (Auto) 0 Neut # (Auto) 15.2 H Lymph # (Auto) 1.0 [place] # (Auto) 0.7 Eos # (Auto) 0.1 Baso # (Auto) 0.0 Immature Gran # (Auto) 0.12 H Absolute Nucleated RBC 0.00 Immature Gran % 1 H Nucleated RBC % 0 PT 12.3 H INR 1.2 APTT 29.9 Puncture Site ABG pH ABG pCO2 ABG pO2 ABG HCO3 ABG O2 Saturation ABG Base Excess FiO2 Sodium 139 Potassium 3.7 Chloride 101 Carbon Dioxide 11.8 L* Anion Gap 26 H BUN 9 Creatinine 1.2 Estim Creat Clear Calc 81.5 eGFR > 60 BUN/Creatinine Ratio 8 L Glucose 106 Calculated Osmolality 276 Lactic Acid Calcium 8.9 Corrected Calcium 8.9 Magnesium 1.4 L Total Bilirubin 1.0 Direct Bilirubin 0.3 AST 431 H ALT 159 H Alkaline Phosphatase 151 H Troponin I < 0.020 B-Natriuretic Peptide < 20 Total Protein 7.6 Albumin 4.2 Globulin 3.4 Albumin/Globulin Ratio 1.2 Triglycerides Cholesterol LDL Cholesterol, Calc HDL Cholesterol Cholesterol/HDL Ratio Amylase 75 Lipase 117 H Beta-Hydroxybutyrate/Acetoacetate 0.4 TSH 1.64 Ur Collection Type Clean Catch Urine Color Yellow Urine Clarity Clear Urine pH 5.5 Ur Specific [place] 1.034 Urine Protein 1+ A Urine Glucose (UA) Negative Urine Ketones 2+ A Urine Blood Trace Urine Nitrite Negative Urine Bilirubin Negative Urine Urobilinogen (Auto) Negative Ur Leukocyte Esterase Negative Urine RBC 2 Urine WBC 0 Ur Squamous Epith Cells 0 Urine Bacteria None Urine Opiates Screen Negative Urine Fentanyl Screen Negative Ur Barbiturates Screen Negative U Amphetamin/Meth Scrn Negative U Benzodiazepines Scrn Positive A U Cocaine Metab Screen Negative U Marijuana (THC) Screen Negative Ethyl Alcohol 74.6 H 01/16/25 01/16/25 01/16/25 00:14 01:48 05:03 WBC 15.8 H RBC 4.56 Hgb 15.1 D Hct 43.2 MCV 95 MCH 33.1 MCHC 35.0 RDW Std Deviation 43.7 Plt Count 138 L D Neut % (Auto) 86 H Lymph % (Auto) 8 L [place] % (Auto) 5 Eos % (Auto) 0 Baso % (Auto) 0 Neut # (Auto) 13.6 H Lymph # (Auto) 1.3 [place] # (Auto) 0.8 Eos # (Auto) 0.0 Baso # (Auto) 0.0 Immature Gran # (Auto) 0.11 H Absolute Nucleated RBC 0.00 Immature Gran % 1 H Nucleated RBC % 0 PT INR APTT Puncture Site Right Radial ABG pH 7.42 ABG pCO2 38 ABG pO2 69 L ABG HCO3 25 ABG O2 Saturation 94 ABG Base Excess 0 FiO2 21 Sodium 138 Potassium 3.9 Chloride 101 Carbon Dioxide 23.2 Anion Gap 14 BUN 12 Creatinine 1.1 Estim Creat Clear Calc 88.9 eGFR > 60 BUN/Creatinine Ratio 11 L Glucose 138 H Calculated Osmolality 277 Lactic Acid 5.1 H* 3.8 H Calcium 8.2 L Corrected Calcium 8.6 Magnesium 1.8 Total Bilirubin 1.6 H D Direct Bilirubin AST 243 H ALT 112 H Alkaline Phosphatase 114 D Troponin I B-Natriuretic Peptide Total Protein 6.1 Albumin 3.5 D Globulin 2.6 Albumin/Globulin Ratio 1.3 Triglycerides 693 H 387 H Cholesterol 108 L LDL Cholesterol, Calc 10 HDL Cholesterol 21 L Cholesterol/HDL Ratio 5.1 Amylase Lipase Beta-Hydroxybutyrate/Acetoacetate TSH 2.15 Ur Collection Type Urine Color Urine Clarity Urine pH Ur Specific [place] Urine Protein Urine Glucose (UA) Urine Ketones Urine Blood Urine Nitrite Urine Bilirubin Urine Urobilinogen (Auto) Ur Leukocyte Esterase Urine RBC Urine WBC Ur Squamous Epith Cells Urine Bacteria Urine Opiates Screen Urine Fentanyl Screen Ur Barbiturates Screen U Amphetamin/Meth Scrn U Benzodiazepines Scrn U Cocaine Metab Screen U Marijuana (THC) Screen Ethyl Alcohol 01/16/25 01/16/25 08:44 12:34 WBC RBC Hgb Hct MCV MCH MCHC RDW Std Deviation Plt Count Neut % (Auto) Lymph % (Auto) [place] % (Auto) Eos % (Auto) Baso % (Auto) Neut # (Auto) Lymph # (Auto) [place] # (Auto) Eos # (Auto) Baso # (Auto) Immature Gran # (Auto) Absolute Nucleated RBC Immature Gran % Nucleated RBC % PT INR APTT Puncture Site ABG pH ABG pCO2 ABG pO2 ABG HCO3 ABG O2 Saturation ABG Base Excess FiO2 Sodium Potassium Chloride Carbon Dioxide Anion Gap BUN Creatinine Estim Creat Clear Calc eGFR BUN/Creatinine Ratio Glucose Calculated Osmolality Lactic Acid 2.9 H Calcium Corrected Calcium Magnesium Total Bilirubin Direct Bilirubin AST ALT Alkaline Phosphatase Troponin I B-Natriuretic Peptide Total Protein Albumin Globulin Albumin/Globulin Ratio Triglycerides 365 H Cholesterol LDL Cholesterol, Calc HDL Cholesterol Cholesterol/HDL Ratio Amylase Lipase Beta-Hydroxybutyrate/Acetoacetate TSH Ur Collection Type Urine Color Urine Clarity Urine pH Ur Specific [place] Urine Protein Urine Glucose (UA) Urine Ketones Urine Blood Urine Nitrite Urine Bilirubin Urine Urobilinogen (Auto) Ur Leukocyte Esterase Urine RBC Urine WBC Ur Squamous Epith Cells Urine Bacteria Urine Opiates Screen Urine Fentanyl Screen Ur Barbiturates Screen U Amphetamin/Meth Scrn U Benzodiazepines Scrn U Cocaine Metab Screen U Marijuana (THC) Screen Ethyl Alcohol ABG Interpretation ABG results: 01/16/25 01:48 ABG pH 7.42 ABG pCO2 38 ABG pO2 69 L ABG HCO3 25 ABG O2 Saturation 94 ABG Base Excess 0 Quality Measures Quality Measures none Assessment & Plan Assessment Current Active Medications: Generic Name Dose Route Start Last Admin Trade Name Freq PRN Reason Stop Dose Admin Acetaminophen 650 mg 01/16/25 00:16 Acetaminophen 325 Mg Tablet PO 02/15/25 00:15 Q6H PRN Fever >100.4 Acetaminophen 650 mg 01/16/25 00:16 Acetaminophen 325 Mg Tablet PO 02/15/25 00:15 Q6H PRN PAIN SCALE 1-3 (mild Folic Acid 1 mg 01/16/25 09:00 01/16/25 08:18 Folic Acid 1 Mg Tablet PO 02/15/25 08:59 1 mg QDAY DARYL Administration Heparin Sodium (Porcine) 5,000 unit 01/16/25 09:00 01/16/25 08:21 Heparin Sod Inj 5000 Unit/Ml Vial SC 01/30/25 08:59 5,000 unit BID DARYL Administration Hydromorphone HCl 1 mg 01/16/25 00:21 01/16/25 14:52 Hydromorphone Inj 2 Mg/Ml Vial IVP 01/21/25 00:20 1 mg Q4H PRN Administration PAIN SCALE 4-10(Mod-Sev Lactated Ringer's 1,000 mls @ 200 mls/hr 01/16/25 03:07 01/16/25 14:49 Lactated Ringers IV 02/15/25 03:06 200 mls/hr .Q5H DARYL Administration Labetalol HCl 10 mg 01/16/25 02:14 01/16/25 18:17 Labetalol Inj 5 Mg/Ml Vial 20 Ml IVP 02/15/25 02:13 10 mg Q4HR PRN Administration SBP>180 Lorazepam 0.5 mg 01/16/25 01:56 01/16/25 11:23 Lorazepam 0.5 Mg Tablet PO 01/21/25 01:55 0.5 mg Q4HR PRN Administration ciwa 2-6 Lorazepam 1 mg 01/16/25 01:56 Lorazepam 0.5 Mg Tablet PO 01/21/25 01:55 Q4HR PRN ciwa 7-11 Lorazepam 2 mg 01/16/25 01:56 Lorazepam 0.5 Mg Tablet PO 01/21/25 01:55 Q4HR PRN CIWA 12-16 Losartan Potassium 50 mg 01/16/25 03:10 01/16/25 08:18 Losartan Potassium 25 Mg Tablet PO 02/15/25 03:09 50 mg QDAY DARYL Administration Ondansetron HCl 4 mg 01/16/25 00:16 Ondansetron Inj 2 Mg/Ml Inj 2 Ml IVP 02/15/25 00:15 Q6H PRN NAUSEA OR VOMITING Protocol Sennosides 1 tab 01/16/25 00:16 Senna Tablet PO 02/15/25 00:15 QDAY PRN constipation Protocol Thiamine HCl 100 mg 01/16/25 09:00 01/16/25 08:18 Thiamine 100 Mg Tablet PO 02/15/25 08:59 100 mg QDAY DARYL Administration Plan Patient is a 54-year-old male with PMH of AUD, HTN, anxiety, presented to the ED on 01/15/25 with severe epigastric and LUQ abdominal pain since 01/14 afternoon. He was admitted on 01/16/25 for acute pancreatitis. # Acute pancreatitis # Alcohol use disorder # Transamnitis # Elevated triglycierides # AGMA, resolved History of AUD with severe epigastric and left upper quadrant abdominal pain since 01/14 associated with nausea vomiting and chills. Hemoglobin 17.3 to 15.1, WBC 17.1 to 15.8, HCO3 11.8 to 23.2, anion gap 26 to 14. Lactic acid 5.1 to 3.8 to 2.9, lipase 117 CT abdomen showing acute pancreatitis and diffuse fatty infiltration in the liver with hepatomegaly. AST 431, ALT 159, ALP 151 on admission; AST 243, ALT 112, ALP 114 on 01/16/25 Triglycerides 693 on admission, now 365; at least partially due to pancreatitis Plan: IV fluids 200 cc/h. Trend lactate. Starting on CIWA protocol, last score was 1 Started thiamine and folate # Hypertensive Urgency Noncompliant with his home hypertension medication Initial blood pressure is 141/96 went to 192/120; denied any symptoms of headache, blurriness of vision. Plan: Started labetalol 10 mg PRN for SBP > 180, losartan 50 mg daily Monitor BP Disposition: Tele DVT prophylaxis: Heparin 5000 BID sc GI prophylaxis: Diet: Clear liquid Lines: PIV CODE STATUS: Full code This case was discussed with my attending physician, Dr. Prabhakar, and senior resident, Dr. Garcia. Satish Rueda MD-PhD, PGY1 Attending Provider Attestation/Addendum I have seen and examined the patient. I was physically present for the carlos portions of the services provided including history, physical exam, diagnosis, treatment plans and orders. I agree with assessment and plan of care as documented by residents. Patient is a 54 years old male with past medical history of hypertension, anxiety, chronic alcohol abuse who presented to the ED with abdominal pain. Patient was found to have acute pancreatitis likely secondary to alcohol abuse and was admitted overnight. He was seen and examined at bedside this morning. He states that he drinks almost every day, mostly hardly core. Continues to have epigastric pain but denied any nausea or vomiting. Patient had triglycerides in 600s on presentation but improved with IV fluids. Triglyceride levels are in 300s this time. Low suspicion for pancreatitis secondary to hypertriglyceridemia, most likely secondary to alcohol abuse. Continues to be on aggressive IV hydration, IV fluid running at 200 cc/h. Patient has been started on CIWA protocol, thiamine and folate, we will continue to monitor for withdrawal symptoms. Patient also had hypertensive urgency on presentation, has been started on losartan 50, blood pressure has improved to 140s, we will continue to monitor closely. Continues to be on as needed analgesic regimen and as needed antiemetics. Started on clear liquid, we will continue to monitor and advance diet if he is able to tolerate. Noted to have significant bilirubin elevation, elevation in liver function, CT abdomen/pelvis shows diffuse fatty infiltration but no gallbladder pathology. Even though this this note was carefully revised there may still be minor errors in patient accounts coordinator due to voice recognition software. Sumaya Prabhakar MD
[2025-01-17] VITALS (8 sets, daily range): BP systolic 138–188; BP diastolic 94–122; PULSE 95–120; RESP 13–25; TEMP 36.1–37.4; O2SAT 93–99; BMI 34.2
[2025-01-17] MEDS: ONDANSETRON INJ 2 MG/ML INJ 2 ML 4 MG IVP (00:33)
[2025-01-17] MEDS: HYDROmorphone INJ 2 MG/ML VIAL 1 MG IVP ×6 (00:38→23:59)
[2025-01-17 01:05] LABS: Triglycerides 368 mg/dL (30-150)
[2025-01-17] MEDS: RINGERS LACTATED 1000 ML 1,000 ML 200 ML IV ×2 (01:28→06:16)
[2025-01-17 06:00] LABS: Basophils # (Auto) 0.0 Thou/mm3 (0.0-0.2); Basophils % (Auto) 0 % (0-2.5); Eosinophils # (Auto) 0.0 Thou/mm3 (0.0-0.5); Eosinophils % (Auto) 0 % (0-10); Hematocrit 40.8 % (41.0-53.0); Hemoglobin 13.7 g/dL (13.5-16.0); Immature Granulocytes Auto 0.08 Thou/mm3 (0.00-0.00); Lymphocytes # (Auto) 1.8 Thou/mm3 (1.0-4.8); Lymphocytes % (Auto) 12 % (10-50); Mean Corpuscular HGB Conc 33.6 g/dl (31.0-37.0); Mean Corpuscular Hemoglobin 33.1 pg (25.0-35.0); Mean Corpuscular Volume 99 fL (80-100); Monocytes # (Auto) 0.9 Thou/mm3 (0.0-0.8); Monocytes % (Auto) 6 % (0-12); Neutrophils # (Auto) 11.7 Thou/mm3 (1.8-7.7); Neutrophils % (Auto) 81 % (37-80); Nucleated Red Blood Cell # 0.00 Thou/mm3 (0.00-0.00); Nucleated Red Blood Cell % 0 /100 WBC (0); Platelet Count 85 Thou/mm3 (140-440); RDW Standard Deviation 46.2 fL (35.1-43.9); Red Blood Count 4.14 Miln/mm3 (4.50-5.90); White Blood Count 14.5 Thou/mm3 (3.8-10.6)
[2025-01-17 06:05] LABS: INR 1.1 (0.9-1.3); Prothrombin Time 11.3 Seconds (9.0-12.2)
[2025-01-17 06:41] LABS: Alanine Aminotransferase 64 U/L (10-49); Albumin, Serum 3.5 gm/dL (3.5-5.0); Albumin/Globulin Ratio 1.5 (1.2-2.2); Alkaline Phosphatase 95 U/L (46-116); Anion Gap 10 (7-16); Aspartate Amino Transferase 129 U/L (0-34); BUN/Creatinine Ratio 7 Ratio (12-20); Bilirubin,Total 1.7 mg/dL (0.3-1.2); Blood Urea Nitrogen 10 mg/dL (9-23); Calcium 8.4 mg/dL (8.3-10.6); Calcium (Corrected) 8.8 mg/dL (8.5-10.1); Carbon Dioxide 26.7 mMol/L (20.0-31.0); Chloride 100 mMol/L (98-107); Creatinine (Component) 1.5 mg/dL (0.6-1.3); Estimated Creatinine Clearance 66.7 mL/min (>60); Globulin 2.3 gm/dL (2.3-3.5); Glucose 130 mg/dL (74-106); Magnesium 1.8 mg/dL (1.6-2.6); Osmolality,Calculated 274 (275-295); Phosphorous 2.0 mg/dL (2.4-5.1); Potassium 4.0 mMol/L (3.4-5.1); Sodium 137 mMol/L (136-145); Total Protein 5.8 gm/dL (5.7-8.2); eGFR 56 See Note
[2025-01-17] MEDS: LOSARTAN POTASSIUM 25 MG TABLET 50 MG PO (08:36)
[2025-01-17] MEDS: THIAMINE 100 MG TABLET PO (08:36)
[2025-01-17] MEDS: FOLIC ACID 1 MG TABLET PO (08:36)
[2025-01-17] MEDS: RINGERS LACTATED 1000 ML 1,000 ML 150 ML IV (08:43)
[2025-01-17 10:26] LABS: Lactate (Lactic Acid) 1.6 mMol/L (0.4-2.0)
[2025-01-17 10:35] LABS: Platelet Count 75 Thou/mm3 (140-440)
[2025-01-17 10:53] LABS: B-Type Natriuretic Peptide 35 pg/mL (0-100)
--- NOTE | 2025-01-17 10:53 | PC.SS ---
Patient is alert/oriented. Patient was able to verify demographics. Patient was independent with ADL's prior to hospitalization. No DME. Patient was admitted for abdominal pain. Patient states he resides with his trust accounts supervisor and mother. Patient has hx: alcohol abuse. No rehab programs in the past. Patient confirmed hx; mental health with anxiety and is currently on medication through [facility] Patient states he's started a new job 4 months ago and is worried and doesn't want to lose his job. PCP: Dr. Annmarie Snyder. Last appt. was a few months ago. Patient will return home upon discharge. Alt medical decision maker: Renu Tapia, trust accounts supervisor,
[2025-01-17 10:56] LABS: C-Reactive Protein > 10.0 mg/dL (0.0-0.9); LDH (Lactate Dehydrogenase) 293 U/L (120-246)
[2025-01-17 11:08] LABS: Slide Review Platelets confirmed
[2025-01-17] MEDS: NAPH,KPH MBDB 1 PACKET (1.5 GM) PO (11:28)
--- NOTE | 2025-01-17 11:32 | XR_ITS ---
Examination: Abdomen AP single view Technique: AP portable supine abdomen, single view Exam date and time: January 17, 2025, 1146 hours INDICATIONS: Abdominal distention today FINDINGS: There are multiple air distended small bowel loops in the midabdomen No free air Moderate stool in the colon Prominent osteopenia IMPRESSION: There are multiple air distended small bowel loops in the midabdomen, which may relate to localized ileus secondary to the patient's acute pancreatitis
[2025-01-17] MEDS: SIMETHICONE 80 MG CHEW PO ×2 (11:57→23:57)
--- NOTE | 2025-01-17 13:39 | ESPR_ITS ---
Documentation for date of: 01/17/25 Subjective Subjective Interval history: Patient was seen and examined at bedside this morning. No acute events. This morning patient's WBCs are downtrending, but platelets also dropped from 1 3 5- 85 and repeat was 75. Given this held his heparin. Patient also developed TIERA with creatinine 1.5 and his T bilirubin is also uptrending. Ordered lactic Rothman dehydrogenase and CRP which both came back elevated. Also ordered lactic acid which was normal. At this time patient does not seem fluid overloaded and BNP was normal therefore will increase rate to 250 cc/h of IV fluids. Patient was complaining of abdominal distention and abdominal x-ray showed possible ileus secondary to pancreatitis. Also complaining of still some abdominal pain therefore we will continue clear liquid diet for now. Patient's labs continue to uptrend and show no improvement will likely repeat abdomen/pelvis CT. CIWA score in the 0-2. Exam Vital Signs Temp Pulse Resp BP Pulse Ox O2 Del Method 97.4 F 101 H 20 149/99 H 95 Room Air 01/17/25 12:00 01/17/25 12:00 01/17/25 12:00 01/17/25 12:00 01/17/25 12:00 01/17/25 12:00 Narrative Exam General: A/O x3, no acute distress, well-nourished, well-developed Eyes: PERRL, EOMI. Anicteric, vision grossly intact. Left eye bruise. Ears: No ear pain, no ear discharge, Hearing grossly intact. Nose: No nasal discharge. Mouth/Throat: Moist mucous membranes, no redness, no lesions. Neck: Neck supple, non-tender, no cervical lymphadenopathy. Lungs: Clear RADHIKA to auscultation and percussion, No accessory muscle use. Cardio: Normal S1/S2, regular rhythm, no murmurs, no JVD or carotid bruits. Abdomen: Soft, but distended, non tender, no palpable masses, peristalsis present, no guarding or rebound. Extremities: Symmetrical, no significant deformities, no peripheral edema , non-tender, peripheral pulses presents. Skin: No rashes, no lesions, warm to touch. Neuro: No focal neurological deficits. Psych: Cooperative, appropriate mood and effect. Objective Labs 01/17/25 09:58 01/17/25 09:58 Labs: Laboratory Results - last 24 hr 01/17/25 01/17/25 01/17/25 00:30 05:19 09:58 WBC 14.5 H RBC 4.14 L Hgb 13.7 Hct 40.8 L MCV 99 MCH 33.1 MCHC 33.6 RDW Std Deviation 46.2 H Plt Count 85 L D 75 L Neut % (Auto) 81 H Lymph % (Auto) 12 [place] % (Auto) 6 Eos % (Auto) 0 Baso % (Auto) 0 Neut # (Auto) 11.7 H Lymph # (Auto) 1.8 [place] # (Auto) 0.9 H Eos # (Auto) 0.0 Baso # (Auto) 0.0 Immature Gran # (Auto) 0.08 H Absolute Nucleated RBC 0.00 Immature Gran % 1 H Nucleated RBC % 0 PT 11.3 INR 1.1 Sodium 137 Potassium 4.0 Chloride 100 Carbon Dioxide 26.7 Anion Gap 10 BUN 10 Creatinine 1.5 H Estim Creat Clear Calc 66.7 eGFR 56 L BUN/Creatinine Ratio 7 L Glucose 130 H Calculated Osmolality 274 L Lactic Acid 1.6 Calcium 8.4 Corrected Calcium 8.8 Phosphorus 2.0 L Magnesium 1.8 Total Bilirubin 1.7 H AST 129 H ALT 64 H Alkaline Phosphatase 95 Lactate Dehydrogenase 293 H C-Reactive Prot, Quant > 10.0 H B-Natriuretic Peptide 35 Total Protein 5.8 Albumin 3.5 Globulin 2.3 Albumin/Globulin Ratio 1.5 Triglycerides 368 H Misc Test Result Platelets confirmed ABG Interpretation ABG results: 01/16/25 01:48 ABG pH 7.42 ABG pCO2 38 ABG pO2 69 L ABG HCO3 25 ABG O2 Saturation 94 ABG Base Excess 0 Quality Measures Quality Measures none Assessment & Plan Assessment Current Active Medications: Generic Name Dose Route Start Last Admin Trade Name Freq PRN Reason Stop Dose Admin Acetaminophen 650 mg 01/16/25 00:16 Acetaminophen 325 Mg Tablet PO 02/15/25 00:15 Q6H PRN Fever >100.4 Acetaminophen 650 mg 01/16/25 00:16 Acetaminophen 325 Mg Tablet PO 02/15/25 00:15 Q6H PRN PAIN SCALE 1-3 (mild Folic Acid 1 mg 01/16/25 09:00 01/17/25 08:36 Folic Acid 1 Mg Tablet PO 02/15/25 08:59 1 mg QDAY DARYL Administration Heparin Sodium (Porcine) 5,000 unit 01/16/25 09:00 01/16/25 20:11 Heparin Sod Inj 5000 Unit/Ml Vial SC 01/30/25 08:59 5,000 unit On Hold: 01/17/25 08:26 BID DARYL Administration Hydromorphone HCl 1 mg 01/16/25 00:21 01/17/25 12:43 Hydromorphone Inj 2 Mg/Ml Vial IVP 01/21/25 00:20 1 mg Q4H PRN Administration PAIN SCALE 4-10(Mod-Sev Lactated Ringer's 1,000 mls @ 250 mls/hr 01/17/25 13:16 Lactated Ringers IV 02/16/25 13:15 .Q4H DARYL Labetalol HCl 10 mg 01/16/25 02:14 01/16/25 18:17 Labetalol Inj 5 Mg/Ml Vial 20 Ml IVP 02/15/25 02:13 10 mg Q4HR PRN Administration SBP>180 Lorazepam 0.5 mg 01/16/25 01:56 01/17/25 04:40 Lorazepam 0.5 Mg Tablet PO 01/21/25 01:55 0.5 mg Q4HR PRN Administration ciwa 2-6 Lorazepam 1 mg 01/16/25 01:56 Lorazepam 0.5 Mg Tablet PO 01/21/25 01:55 Q4HR PRN ciwa 7-11 Lorazepam 2 mg 01/16/25 01:56 Lorazepam 0.5 Mg Tablet PO 01/21/25 01:55 Q4HR PRN CIWA 12-16 Losartan Potassium 50 mg 01/16/25 03:10 01/17/25 08:36 Losartan Potassium 25 Mg Tablet PO 02/15/25 03:09 50 mg QDAY DARYL Administration Ondansetron HCl 4 mg 01/16/25 00:16 01/17/25 00:33 Ondansetron Inj 2 Mg/Ml Inj 2 Ml IVP 02/15/25 00:15 4 mg Q6H PRN Administration NAUSEA OR VOMITING Protocol Sennosides 1 tab 01/16/25 00:16 Senna Tablet PO 02/15/25 00:15 QDAY PRN constipation Protocol Simethicone 80 mg 01/17/25 11:30 01/17/25 11:57 Simethicone 80 Mg Chew PO 02/16/25 11:29 80 mg QID PRN Administration GAS Thiamine HCl 100 mg 01/16/25 09:00 01/17/25 08:36 Thiamine 100 Mg Tablet PO 02/15/25 08:59 100 mg QDAY DARYL Administration Plan Patient is a 54-year-old male with PMH of AUD, HTN, anxiety, presented to the ED on 01/15/25 with severe epigastric and LUQ abdominal pain since 01/14 afternoon. He was admitted on 01/16/25 for acute pancreatitis. # Acute pancreatitis # Alcohol use disorder # Transamnitis # Elevated triglycierides # AGMA, resolved History of AUD with severe epigastric and left upper quadrant abdominal pain since 01/14 associated with nausea vomiting and chills. Hemoglobin 17.3 to 15.1, WBC 17.1 to 15.8, HCO3 11.8 to 23.2, anion gap 26 to 14. Lactic acid 5.1 to 3.8 to 2.9, lipase 117 CT abdomen showing acute pancreatitis and diffuse fatty infiltration in the liver with hepatomegaly. AST 431, ALT 159, ALP 151 on admission; AST 243, ALT 112, ALP 114 on 01/16/25 Triglycerides 693 on admission, now 365; at least partially due to pancreatitis Plan: IV fluids 250 cc/h. Pain medications on board On [facility] protocol On thiamine and folate # Hypertensive Urgency Noncompliant with his home hypertension medication Initial blood pressure is 141/96 went to 192/120; denied any symptoms of headache, blurriness of vision. Plan: losartan 50 mg daily Monitor BP #Thrombocytopenia Unclear cause, possibly secondary to hemodilution, underlying pancreatitis, liver disease Platelets were 231 on presentation, 75 this morning We will hold heparin and start him on SCDs for DVT prophylaxis Monitor with daily labs. Disposition: Tele DVT prophylaxis: Heparin 5000 BID held due to drop in platelets GI prophylaxis: Diet: Clear liquid Lines: PIV CODE STATUS: Full code Case disclosed with Attending Dr. Vanna Viramontes PGY2 Disclaimer: Even though this this note was dictated by speech recognition and even though it was carefully revised there may still be minor errors in sweatband decorating machine operator due to voice recognition software. Attending Provider Attestation/Addendum I have seen and examined the patient. I was physically present for the carlos portions of the services provided including history, physical exam, diagnosis, treatment plans and orders. I agree with assessment and plan of care as documented by residents. Patient seen and examined at bedside this morning. No acute overnight events. Appears comfortable but continues to complain of epigastric pain. Has been receiving IV Dilaudid [id number]. Continues to be on clear liquid diet. WBC count has been downtrending, vital signs have been stable. Noted to have elevated creatinine this morning, fluid rate was initially decreased with concern for volume overload but on exam, patient continues to look euvolemic, CRP and LDH was obtained, which are elevated with concern for ongoing pancreatitis with significant inflammation, we will increase the fluid rate to 250 cc/h. We will monitor his MARTINA strictly and also monitor his kidney function closely. Phosphorus was 2.0, repleted accordingly. Liver function remains elevated, we will monitor closely. BNP was obtained, level at 35, low concern for volume overload. Patient continues to be on CIWA protocol, score has been low 0-2. Noted to have drop in platelets from 231-75, we will hold his heparin subcutaneous and start him on SCDs for DVT prophylaxis. Even though this this note was carefully revised there may still be minor errors in sweatband decorating machine operator due to voice recognition software. Sumaya Prabhakar MD
[2025-01-17] MEDS: RINGERS LACTATED 1000 ML 1,000 ML 250 ML IV ×2 (14:14→19:46)
[2025-01-17 14:16] LABS: Alanine Aminotransferase 60 U/L (10-49); Albumin, Serum 3.3 gm/dL (3.5-5.0); Albumin/Globulin Ratio 1.4 (1.2-2.2); Alkaline Phosphatase 90 U/L (46-116); Anion Gap 11 (7-16); Aspartate Amino Transferase 129 U/L (0-34); BUN/Creatinine Ratio 7 Ratio (12-20); Bilirubin,Total 1.8 mg/dL (0.3-1.2); Blood Urea Nitrogen 9 mg/dL (9-23); Calcium 8.0 mg/dL (8.3-10.6); Calcium (Corrected) 8.6 mg/dL (8.5-10.1); Carbon Dioxide 24.5 mMol/L (20.0-31.0); Chloride 101 mMol/L (98-107); Creatinine (Component) 1.3 mg/dL (0.6-1.3); Estimated Creatinine Clearance 77.0 mL/min (>60); Globulin 2.3 gm/dL (2.3-3.5); Glucose 90 mg/dL (74-106); Osmolality,Calculated 270 (275-295); Potassium 3.4 mMol/L (3.4-5.1); Sodium 136 mMol/L (136-145); Total Protein 5.6 gm/dL (5.7-8.2); eGFR > 60 See Note
[2025-01-17] MEDS: LABETALOL INJ 5 MG/ML VIAL 20 ML 10 MG IVP (23:57)
[2025-01-18] VITALS: BP 188/108; PULSE 120; PULSE 97; RESP 16; TEMP 36.2; O2SAT 99
[2025-01-18] MEDS: RINGERS LACTATED 1000 ML 1,000 ML 250 ML IV ×3 (00:05→09:07)
[2025-01-18 04:00] VITALS: BP 159/109; PULSE 88; PULSE 93; RESP 12; TEMP 36.4; O2SAT 99
[2025-01-18] MEDS: HYDROmorphone INJ 2 MG/ML VIAL 1 MG IVP (05:02)
[2025-01-18 05:48] LABS: Basophils # (Auto) 0.0 Thou/mm3 (0.0-0.2); Basophils % (Auto) 0 % (0-2.5); Eosinophils # (Auto) 0.1 Thou/mm3 (0.0-0.5); Eosinophils % (Auto) 2 % (0-10); Hematocrit 34.8 % (41.0-53.0); Hemoglobin 11.7 g/dL (13.5-16.0); Immature Granulocytes Auto 0.07 Thou/mm3 (0.00-0.00); Lymphocytes # (Auto) 1.4 Thou/mm3 (1.0-4.8); Lymphocytes % (Auto) 16 % (10-50); Mean Corpuscular HGB Conc 33.6 g/dl (31.0-37.0); Mean Corpuscular Hemoglobin 33.1 pg (25.0-35.0); Mean Corpuscular Volume 98 fL (80-100); Monocytes # (Auto) 0.6 Thou/mm3 (0.0-0.8); Monocytes % (Auto) 7 % (0-12); Neutrophils # (Auto) 6.4 Thou/mm3 (1.8-7.7); Neutrophils % (Auto) 75 % (37-80); Nucleated Red Blood Cell # 0.00 Thou/mm3 (0.00-0.00); Nucleated Red Blood Cell % 0 /100 WBC (0); RDW Standard Deviation 46.3 fL (35.1-43.9); Red Blood Count 3.54 Miln/mm3 (4.50-5.90); White Blood Count 8.6 Thou/mm3 (3.8-10.6)
[2025-01-18 05:49] LABS: Platelet Count 65 Thou/mm3 (140-440)
[2025-01-18 06:00] VITALS: BMI 34.2
[2025-01-18 06:08] LABS: Alanine Aminotransferase 53 U/L (10-49); Albumin, Serum 3.3 gm/dL (3.5-5.0); Albumin/Globulin Ratio 1.7 (1.2-2.2); Alkaline Phosphatase 83 U/L (46-116); Anion Gap 10 (7-16); Aspartate Amino Transferase 111 U/L (0-34); BUN/Creatinine Ratio 8 Ratio (12-20); Bilirubin,Total 1.7 mg/dL (0.3-1.2); Blood Urea Nitrogen 8 mg/dL (9-23); Calcium 8.3 mg/dL (8.3-10.6); Calcium (Corrected) 8.9 mg/dL (8.5-10.1); Carbon Dioxide 28.5 mMol/L (20.0-31.0); Chloride 100 mMol/L (98-107); Creatinine (Component) 1.0 mg/dL (0.6-1.3); Estimated Creatinine Clearance 100.1 mL/min (>60); Globulin 2.0 gm/dL (2.3-3.5); Glucose 87 mg/dL (74-106); Magnesium 1.8 mg/dL (1.6-2.6); Osmolality,Calculated 272 (275-295); Phosphorous 1.8 mg/dL (2.4-5.1); Potassium 3.6 mMol/L (3.4-5.1); Sodium 138 mMol/L (136-145); Total Protein 5.3 gm/dL (5.7-8.2); eGFR > 60 See Note
[2025-01-18 08:00] VITALS: BP 150/94; PULSE 86; PULSE 96; RESP 18; TEMP 36.1; O2SAT 95
[2025-01-18 09:09] VITALS: BP 150/94; PULSE 86
[2025-01-18] MEDS: THIAMINE 100 MG TABLET PO (09:09)
[2025-01-18] MEDS: LOSARTAN POTASSIUM 25 MG TABLET 50 MG PO (09:09)
[2025-01-18] MEDS: FOLIC ACID 1 MG TABLET PO (09:09)
[2025-01-18 09:12] LABS: Slide Review Platelets confirmed
[2025-01-18] MEDS: Magnesium Sulfate 2 GM Ivpb 2 GM/50 ML BAG IV (09:14)
[2025-01-18 11:47] VITALS: BP 174/112; PULSE 89; RESP 18; TEMP 36.9; O2SAT 96
[2025-01-18] MEDS: ACETAMINOPHEN 325 MG TABLET 650 MG PO (11:53)
--- NOTE | 2025-01-18 12:03 | PC.NURSE ---
pt. left AMA. DR. PACHECO and Charge Nurse JETT was informed.
--- NOTE | 2025-01-18 14:00 | PD.RESEVENT ---
Documentation for date of: 01/18/25 Event Note Event Note: Patient spoke with nursing this morning and expressed desire to leave AGAINST MEDICAL ADVICE, because he believed that getting fluids and being monitored could be done by his home physician. In addition, he was disappointed that alarms were not being silenced in time. Internal medicine team went to speak to the patient, explaining that while he is only getting IV fluids and being monitored, his diagnosis of pancreatitis means that we need to monitor him for 3 to 4 days to avoid possible complications, including pseudocyst formation, narcotizing infection, and . Patient acknowledged this, but still wanted to go home; he stated that he would follow-up tomorrow with his primary care physician. Patient was ANO x 4, and acknowledged the risks of leaving AGAINST MEDICAL ADVICE. He then signed the appropriate AMA paperwork. Physical exam: General: A/O x4, no acute distress, well-nourished, well-developed Eyes: PERRL, EOMI. Anicteric, vision grossly intact. Ears: No ear pain, no ear discharge, Hearing grossly intact. Nose: No nasal discharge. Mouth/Throat: Moist mucous membranes, no redness, no lesions. Neck: Neck supple, non-tender, no cervical lymphadenopathy. Lungs: Clear RADHIKA to auscultation and percussion, No accessory muscle use. Cardio: Normal S1/S2, regular rhythm, no murmurs, no JVD or carotid bruits. Abdomen: Soft, non-tender, no palpable masses, peristalsis present, no guarding or rebound. Extremities: Symmetrical, no significant deformities, no peripheral edema , non-tender, peripheral pulses presents. Skin: No rashes, no lesions, warm to touch. Neuro: No focal neurological deficits. Psych: Cooperative, appropriate mood and effect. This case was discussed with my attending physician, Dr. Prabhakar, and senior resident, Dr. Jalloh. Satish Rueda MD-PhD, PGY1 Senior resident attestation: Patient evaluated and examined at the bedside, plan of care discussed with rest of the team including my attending physician, except as noted. Patient was informed about their current medical condition and the reasons requiring hospitalization and administration of medication. The patient was also informed regarding the risks of leaving AGAINST MEDICAL ADVICE, which include deterioration of current condition which could result in worsening symptoms and ultimately could even result in . The patient was able to clearly communicate an understanding of their medical condition back to me. I asked the patient if they are able to explain to me what might happen if they leave the hospital right now and they were able to clearly communicate the risks attributed to their medical condition that could result in further deterioration / bodily harm. The patient was able to explain the reasons that led to their decision for them to leave AGAINST MEDICAL ADVICE in a clear logical manner. I did ask the patient if there is anything that I, or other staff members could do to help improve their experience in the hospital that would allow them to reconsider remaining in the hospital receiving medical care. I also asked the patient if there were any family or friends that we could contact to help the patient reconsider their decision to leave the hospital. The patient denied severe depression influencing their decision making capacity. The patient denied suicidal ideation. The patient denied any extreme extenuating circumstances outside of the hospital that we could help with, this did not change their mind about leaving the hospital. The patient reports having access to their home medications and was willing to allow us to prescribe additional medications to their pharmacy. The patient has been informed that they can return for care at any time and has been advised to follow-up with their PCP or any medical physician immediately following leave. Advised to take tylenol for pain , and avoid ibuprofen. The patient was given strict return precautions to the Emergency Room, if he develops fever, severe abdominal pain, unable to tolerate food or water, strict abstinence from alcohol, withdrawal symptoms, or decreasing urine output. Quresh PGY3
== END 2025-01-18 12:01 | disposition left against medical advice (07) | DRG 439 ==
LOC: SERX 23:18 → SERHOLD 01-16 01:02 → S2NX 01-16 18:38
PROVIDERS: Physician Assistant; Student in an Organized Health Care Education/Training Program; Admitting Provider Internal Medicine; Emergency Provider Emergency Medicine; PCP Family Medicine; Visit Provider Student in an Organized Health Care Education/Training Program
DX: K85.90 Acute pancreatitis without necrosis or infection, unspecified (principal); E87.20 Acidosis, unspecified; N17.9 Acute kidney failure, unspecified; I10 Essential (primary) hypertension; K76.0 Fatty (change of) liver, not elsewhere classified; F41.9 Anxiety disorder, unspecified; Z91.199 Patient's noncompliance with other medical treatment and regimen due to unspecified reason; F10.10 Alcohol abuse, uncomplicated; I16.0 Hypertensive urgency; E83.42 Hypomagnesemia; D69.6 Thrombocytopenia, unspecified; Z88.5 Allergy status to narcotic agent; Y90.3 Blood alcohol level of 60-79 mg/100 ml; Z79.899 Other long term (current) drug therapy
CPT/HCPCS: 36415; 36600; 71046; 74018; 74176; 76705; 80053; 80061; 80069; 80307; 80320; 81001; 82010; 82150; 82248; 82803; 83605; 83615; 83690; 83735; 83880; 84100; 84443; 84478; 84484; 85025; 85049; 85610; 85730; 86140; 87811; 93005; 96361; 96365; 96366; 96372; 96375; 96376; 99285; J1171; J1644; J1885; J2060; J2405; J2470; J3475; J3490; J7120; Q0162; A9270; G0480; J1920

== ENCOUNTER → 2025-01-26 | Outpatient (CLI) | payer BC, SELFPAY ==
--- NOTE | 2025-01-26 08:37 | XR_ITS ---
Examination: Abdomen sonogram, complete Date and time of exam: January 26, 2025, 0841 hours INDICATIONS: Abdominal pain today, history pancreatitis. Technique: Multiple real-time grayscale transabdominal sonographic images of the abdomen have been obtained. Findings: Normal gallbladder. Normal common bile duct 0.3 cm Pancreatic head 2.6 cm Aorta obscured by bowel gas Liver 17.9 cm fatty infiltration Normal hepatopetal portal venous flow Patent IVC Right kidney 11.7 cm renal cortex 1.8 cm Left kidney 10.9 cm renal cortex 1.7 cm Moderate renal scar formation Spleen 10.6 cm IMPRESSION: Normal gallbladder Normal common bile duct Moderate hepatomegaly Moderate bilateral renal scar formation
[2025-01-26 08:40] LABS: Basophils # (Auto) 0.1 Thou/mm3 (0.0-0.2); Basophils % (Auto) 1 % (0-2.5); Eosinophils # (Auto) 0.1 Thou/mm3 (0.0-0.5); Eosinophils % (Auto) 1 % (0-10); Hematocrit 42.8 % (41.0-53.0); Hemoglobin 13.9 g/dL (13.5-16.0); Immature Granulocytes Auto 0.12 Thou/mm3 (0.00-0.00); Lymphocytes # (Auto) 2.3 Thou/mm3 (1.0-4.8); Lymphocytes % (Auto) 29 % (10-50); Mean Corpuscular HGB Conc 32.5 g/dl (31.0-37.0); Mean Corpuscular Hemoglobin 32.4 pg (25.0-35.0); Mean Corpuscular Volume 100 fL (80-100); Monocytes # (Auto) 0.8 Thou/mm3 (0.0-0.8); Monocytes % (Auto) 10 % (0-12); Neutrophils # (Auto) 4.6 Thou/mm3 (1.8-7.7); Neutrophils % (Auto) 58 % (37-80); Nucleated Red Blood Cell # 0.00 Thou/mm3 (0.00-0.00); Nucleated Red Blood Cell % 0 /100 WBC (0); Platelet Count 459 Thou/mm3 (140-440); RDW Standard Deviation 46.6 fL (35.1-43.9); Red Blood Count 4.29 Miln/mm3 (4.50-5.90); White Blood Count 7.9 Thou/mm3 (3.8-10.6)
[2025-01-26 08:58] LABS: Alanine Aminotransferase 33 U/L (10-49); Albumin, Serum 4.7 gm/dL (3.5-5.0); Albumin/Globulin Ratio 1.8 (1.2-2.2); Alkaline Phosphatase 88 U/L (46-116); Amylase 117 U/L (30-118); Anion Gap 14 (7-16); Aspartate Amino Transferase 58 U/L (0-34); BUN/Creatinine Ratio 9 Ratio (12-20); Bilirubin,Direct 0.3 mg/dL (0.0-0.3); Bilirubin,Total 0.5 mg/dL (0.3-1.2); Blood Urea Nitrogen 12 mg/dL (9-23); Calcium 9.6 mg/dL (8.3-10.6); Calcium (Corrected) 9.6 mg/dL (8.5-10.1); Carbon Dioxide 25.1 mMol/L (20.0-31.0); Chloride 102 mMol/L (98-107); Creatinine (Component) 1.4 mg/dL (0.6-1.3); Globulin 2.6 gm/dL (2.3-3.5); Glucose 90 mg/dL (74-106); Lipase 87 U/L (12-53); Osmolality,Calculated 280 (275-295); Potassium 3.7 mMol/L (3.4-5.1); Sodium 141 mMol/L (136-145); Total Protein 7.3 gm/dL (5.7-8.2); eGFR > 60 See Note
[2025-01-26 09:13] LABS: Folate 13.84 ng/mL (>5.38)
== END | disposition home or self-care (01) ==
PROVIDERS: PCP Family Medicine; Referring Provider Physician Assistant; Visit Provider Radiology Diagnostic Radiology
DX: R16.0 Hepatomegaly, not elsewhere classified (principal); N28.89 Other specified disorders of kidney and ureter; F10.10 Alcohol abuse, uncomplicated; Z87.19 Personal history of other diseases of the digestive system; I10 Essential (primary) hypertension
CPT/HCPCS: 36415; 76700; 80053; 80076; 82150; 82248; 82746; 83690; 85025